=== PATIENT | male | born 1995 ===

== ENCOUNTER 2023-08-05 11:00 | Outpatient (CLI) | payer OTHER ==
[2023-08-05 20:35] LABS: CHLAMYDIA TRACHOMATIS DNA NEGATIVE (NEGATIVE); NEISSERIA GONORRHOEAE DNA NEGATIVE (NEGATIVE); TRICHOMONAS VAGINALIS DNA NEGATIVE (NEGATIVE)
== END 2023-08-05 11:15 | disposition home or self-care (01) ==
LOC: LAB.N 11:00
PROVIDERS: ATTEND Physician Assistant Medical
DX: Z11.3 Encounter for screening for infections with a predominantly sexual mode of transmission (principal)
CPT/HCPCS: 36415; 86592; 86803; 87389; 87491; 87591; 87661